=== PATIENT | male | born 1960 | race American Indian/Alaskan Native ===

== ENCOUNTER 2019-12-05 05:41 | Emergency (ER) | payer OTHER ==
[2019-12-05] MEDS ORDERED: ONDANSETRON 4 MG/2 ML INJ IV STA (06:35)
[2019-12-05] MEDS ORDERED: SODIUM CHLORIDE 0.9% 1000 ML 1,000 ML IV ONE (06:35)
[2019-12-05] MEDS ORDERED: HYOSCYAMINE SUBL 0.125 MG TAB SL ONE (06:35)
--- NOTE | 2019-12-05 06:35 | Emergency Department Report ---
Blank Doc - Documentation Documentation: 59-year-old F Polish male presents emergency department complains of a two-w [place] history of episodic nausea and vomiting without diarrhea or abdominal pain. Ports no chest pain, no fever, chills, sweats no hemoptysis no hematemesis no hematochezia. No rashes or coryza. No change in home blood blood pressure medications and he has no known metabolic diseases to his knowledge. He is ambulatory and sipping on water on a water having some occasional dry heaving Plan to leave will evaluate labs placed on IV and give IV fluids and antiemetics and reevaluate his skin condition examination does not reveal any stomach pain
[2019-12-05 06:49] LABS: Basophils # (Auto) 0.1 K/mm3 (0.0-0.1); Basophils % (Auto) 0.8 % (0.0-1.8); Eosinophils % (Auto) 0.5 % (0.0-4.3); Hematocrit 36.5 % (35.5-45.6); Hemoglobin 12.8 gm/dl (11.8-15.2); Lymphocytes # (Auto) 1.1 K/mm3 (1.2-5.4); Lymphocytes % (Auto) 12.6 % (13.4-35.0); Mean Corpuscular HGB Conc 35 % (32-34); Mean Corpuscular Volume 94 fl (84-94); Monocytes # (Auto) 0.8 K/mm3 (0.0-0.8); Monocytes % (Auto) 8.8 % (0.0-7.3); Platelet Count 356 K/mm3 (140-440); Red Blood Count 3.88 M/mm3 (3.65-5.03); Red Cell Distribution Width 13.8 % (13.2-15.2)
--- NOTE | 2019-12-05 06:57 | XRay Report ---
CHEST 2 VIEWS, 12/05/2019 5:50 AM INDICATION: Nausea and vomiting for 2 weeks. Loss of taste. COMPARISON: None FINDINGS: Support devices: None. Heart: The cardiac silhouette is upper limits of normal in size. Lungs/pleura: The lungs are clear of focal airspace disease or significant pleural effusion. Additional findings: No significant acute abnormality. IMPRESSION: 1. No evidence of acute cardiopulmonary process. Signer Name: Felicia Hansen MD Signed: 12/05/2019 6:53 AM Workstation Name: [employer]
[2019-12-05 07:10] LABS: Bilirubin,Urine NEG (Negative); Blood,Urine NEG (Negative); Color,Urine Yellow (Yellow); Mucus,Urine FEW /HPF; Urobilinogen,Urine < 2.0 mg/dL (<2.0)
[2019-12-05 07:35] LABS: Alanine Aminotransferase 16 units/L (7-56); Albumin 4.3 g/dL (3.9-5); BUN/Creatinine Ratio 11; Blood Urea Nitrogen 15 mg/dL (9-20); Calcium 10.4 mg/dL (8.4-10.2); Hemolysis Index 13
--- NOTE | 2019-12-05 07:58 | Emergency Department Report ---
Vomiting/Diarrhea - HPI Chief Complaint: Nausea/Vomiting/Diarrhea Stated Complaint: VOMITING CANT HOLD FOOD DOWN Time Seen by Provider: 12/05/19 07:28 Duration: 2 weeks Severity: mild Nausea/Vomiting Severity: Moderate Diarrhea Severity: None Pain Severity: None Symptoms: Yes Able to Tolerate Fluids (but throws up later), No Watery Diarrhea, No Bloody diarrhea, No Fever, No Recent Unusual Foods, No Recent Untreated Water, No Recent use of Antibiotics, No Family w/ Similar Symptoms, No Contacts w/ Similar Symptoms, No Rash, No Hematuria, No Recent URI Symptoms Other History: This 59-year-old male with no prior medical history who presents the ED complaining of nausea x2 weeks. He states the nausea is intermittent and comes and goes throughout the day. Patient states he has been dry heaving for about a week now. Patient denies any medical history of abdominal surgeries or any other problem. Patient denies fever/chills/abdominal pain/chest pain/shortness of breath ED Review of Systems ROS: Stated complaint: VOMITING CANT HOLD FOOD DOWN Other details as noted in HPI Comment: All other systems reviewed and negative ED Past Medical Hx - Past Medical History Previous Medical History?: Yes Hx Hypertension: Yes - Surgical History Past Surgical History?: Yes Additional Surgical History: Hand surgery - Social History Smoking Status: Never Smoker - Medications Home Medications: Home Medications Medication Instructions Recorded Confirmed Last Taken Type Famotidine [Pepcid] 20 mg PO BID #20 tablet 12/05/19 Unknown Rx Ondansetron (Nf) [Zofran TAB] 8 mg PO Q8HR PRN #20 tablet 12/05/19 Unknown Rx Vomiting Diarrhea Exam - Exam General: Vital signs noted. No distress. Alert and acting appropriately. HEENT: Yes Moist Mucous Membranes, No Pharyngeal Erythema, No Pharyngeal Exudates, No Rhinorrhea, No Conjuctival Injection, No Frontal Tenderness, No Maxillary Tenderness Neck: No Adenopathy, No Rigidity Lungs: Yes Clear Lung Sounds, Yes Good Air Exchange, No Wheezes, No Stridor, No Cough, No Nasal Flaring, No Retractions, No Use of Accessory Muscles Heart exam: Regular: Yes, Murmur: No, Tachycardia: No Abdomen: Tenderness: No, Peritoneal Signs: No, Distention: No, Hyperactive Bowel sounds: No Skin exam: Rash: No, Edema: No, Normal turgor: Yes Neurologic: Alert and oriented, no deficits. Musculoskeletal: Unremarkable. ED Course Vital Signs 12/05/19 06:09 Temperature 98.5 F Pulse Rate 84 Respiratory 18 Rate Blood Pressure 183/108 O2 Sat by Pulse 100 Oximetry ED Medical Decision Making - Lab Data Result diagrams: 12/05/19 06:29 12/05/19 06:29 Laboratory Results - last 24 hr 12/05/19 12/05/19 12/05/19 06:29 06:29 07:03 WBC 8.5 RBC 3.88 Hgb 12.8 Hct 36.5 MCV 94 MCH 33 H MCHC 35 H RDW 13.8 Plt Count 356 Lymph % (Auto) 12.6 L Grady % (Auto) 8.8 H Eos % (Auto) 0.5 Baso % (Auto) 0.8 Lymph # 1.1 L Grady # 0.8 Eos # 0.0 Baso # 0.1 Seg Neutrophils % 77.3 H Seg Neutrophils # 6.6 Sodium 136 L Potassium 3.8 Chloride 96.3 L Carbon Dioxide 21 L Anion Gap 23 BUN 15 Creatinine 1.4 Estimated GFR > 60 BUN/Creatinine Ratio 11 Glucose 128 H Calcium 10.4 H Total Bilirubin 0.40 AST 15 ALT 16 Alkaline Phosphatase 82 Total Protein 8.1 Albumin 4.3 Albumin/Globulin Ratio 1.1 Lipase 41 Urine Color Yellow Urine Turbidity Clear Urine pH 6.0 Ur Specific Baird 1.014 Urine Protein 30 mg/dl Urine Glucose (UA) 50 Urine Ketones 20 Urine Blood Neg Urine Nitrite Neg Urine Bilirubin Neg Urine Urobilinogen < 2.0 Ur Leukocyte Esterase Neg Urine WBC (Auto) 1.0 Urine RBC (Auto) 1.0 Urine Mucus Few - Medical Decision Making 59-year-old male presents with nausea. All labs were completed, all labs are within normal limits. Patient received antiemetics and IV fluids in the ED. Patient feeling better prior to administration of meds. Nausea resolved. Discussed nausea medication also prescriptions. Discussed follow-up with primary care physician as well as wheat cleaner. Vital signs are normal patient is in no acute distress. Critical care attestation.: If time is entered above; I have spent that time in minutes in the direct care of this critically ill patient, excluding procedure time. ED Disposition Clinical Impression: Nausea & vomiting, Uncontrolled hypertension Disposition: -01 TO HOME OR SELFCARE Is pt being admited?: No Does the pt Need Aspirin: No Condition: Stable Instructions: Gastroenteritis (ED), Acute Nausea and Vomiting (ED), Hypertension (ED) Additional Instructions: Make sure to follow up with the primary care physician as discussed. Take all your medications as you've been prescribed. If you have any worsening symptoms or develop new symptoms please return to ED immediately. Prescriptions: Famotidine [Pepcid] 20 mg PO BID #20 tablet Ondansetron (Nf) [Zofran TAB] 8 mg PO Q8HR PRN #20 tablet PRN Reason: Nausea Referrals: PRIMARY CARE,MD [Primary Care Provider] - 3-5 Days [facility] [Provider Group] - 3-5 Days [facility] [Provider Group] - 3-5 Days [facility] [Outside] - 3-5 Days [facility] [Outside] - 3-5 Days Forms: Work/School Release Form(ED) Time of Disposition: 08:52
[2019-12-05] MEDS ORDERED: HYOSCYAMINE SUBL 0.125 MG TAB ONE (08:43)
[2019-12-05 09:15] VITALS: BP 186/102
== END 2019-12-05 09:37 | disposition home or self-care (01) ==
LOC: ED 05:41
DX: R11.2 Nausea with vomiting, unspecified (principal); I10 Essential (primary) hypertension; Z98.890 Other specified postprocedural states; Z79.899 Other long term (current) drug therapy
CPT/HCPCS: 36415; 71046; 80053; 81001; 83690; 85025; 96361; 96374; 99284; J2405; J7030